=== PATIENT | female | born 1965 | race African-American/Black ===

== ENCOUNTER 2019-05-13 13:20 | Emergency (ER) | payer MEDICAID ==
[~2019-05-13] VITALS: Ht 167.6 cm; Wt 62.0 kg
[~2019-05-13 13:20] MED LIST: FERR-43 PO
[2019-05-13] MEDS ORDERED: CLONIDINE 0.2MG TABLET PO ONE (14:45)
[2019-05-13] MEDS ORDERED: CLONIDINE 0.2MG TABLET PO NR (15:15)
[2019-05-13 15:30] LABS: BASOPHILS % 0.7 % (0.0-2.0); EOSINOPHILS % 2.7 % (0.0-5.0); HEMATOCRIT. 43.9 % (36.0-48.0); HEMOGLOBIN. 15.2 g/dL (12.0-16.0); MEAN CORPUSCULAR VOLUME 89.9 fL (81.0-99.0); MEAN PLATELET VOLUME 8.9 fl (7.4-10.4); MONOCYTES % 6.6 % (2.0-8.0); PLATELET 223 x1000/uL (130-400); RED BLOOD CELL COUNT 4.88 mill/uL (4.2-5.4); RED CELL DISTRIBUTION WIDTH 12.9 % (11.6-14.6)
[2019-05-13 16:01] LABS: CHLORIDE 104 mEq/L (98-107)
[2019-05-13 21:02] VITALS: BP 117/71
== END 2019-05-13 21:07 | disposition home or self-care (01) ==
LOC: ER 13:20
DX: I10 Essential (primary) hypertension (principal); R07.89 Other chest pain; Z90.710 Acquired absence of both cervix and uterus
CPT/HCPCS: 36415; 71045; 80053; 83880; 84484; 85025; 93005; 99285